=== PATIENT | female | born 1950 | race Caucasian/White ===

== ENCOUNTER → 2017-10-06 | Emergency (ER) | payer BC ==
[~2017-10-06] VITALS: Ht 157.5 cm; Wt 61.2 kg
[~2017-10-06] MED LIST: AMOX500C2 PO; ASPIRIN 325 MG TABLET PO ONE; ASPIRIN 81 MG TAB.CHEW ONE; ASPIRIN 81 MG TAB.CHEW PO ONE; CARVEDILOL 3.125 MG TABLET; PANTOPRAZOLE SOD DR 40 MG TAB
--- NOTE | 2017-10-06 20:43 | NUR ---
PT BROUGHT IN BY [facility] FOR CHEST PAIN OFF AND ON FOR 1 DAY, WORSE 30 MINUTES PRIOR TO ARRIVAL. 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 PT DESCRIBES CHEST PAIN DULL AND PRESSURE NON-RADIATING. DTR AT BEDSIDE SPEAKS JAPANESE. PT STATES SHE DOES NOT SPEAK JAPANESE BUT WAS SPEAKING JAPANESE TO NURSE. EKG REQUESTED TO PT BEDSIDE
[2017-10-06 21:08] LABS: BASOPHILS # (AUTO) 0.1 /CMM (0.0-0.2); BASOPHILS % (AUTO) 0.9 % (0.0-2.0); EOSINOPHILS # (AUTO) 0.1 /CMM (0.0-0.7); EOSINOPHILS % (AUTO) 1.7 % (0.0-6.0); HEMATOCRIT 34 % (33-45); HEMOGLOBIN 11.4 g/dL (11.5-14.8); LYMPHOCYTES # (AUTO) 2.2 /CMM (0.8-4.8); MEAN CORPUSCULAR HEMOGLOBIN 28 PG (26.0-33.0); MEAN CORPUSCULAR HGB CONC 34 g/dl (31.0-36.0); MEAN CORPUSCULAR VOLUME 84 fL (82-100); MONOCYTES # (AUTO) 0.5 /CMM (0.1-1.30); MONOCYTES % (AUTO) 9.3 % (2.0-12.0); NEUTROPHILS # (AUTO) 2.9 /CMM (1.8-8.9); NEUTROPHILS % (AUTO) 51.1 % (43.0-81.0); PLATELET COUNT (AUTO) 250 /CMM (150-450); RDW COEFFICIENT OF VARIATION 13.7 (11.5-15.0); RED BLOOD CELL COUNT(AUTO) 4.05 MIL/uL (4.0-5.2); WHITE BLOOD COUNT (AUTO) 5.8 K/uL (4.3-11.0)
[2017-10-06 21:18] LABS: CALCIUM, SERUM 8.9 mg/dL (8.5-10.1); CARBON DIOXIDE 29 mmol/L (21-32); CHLORIDE 106 mmol/L (98-107); CREATININE 0.6 mg/dL (0.6-1.3); GLUCOSE 109 mg/dL (74-106); POTASSIUM 4.2 mmol/L (3.5-5.1); SODIUM SERUM 140 mmol/L (136-145); UREA NITROGEN, BLOOD 16 mg/dL (7-18)
[2017-10-06 21:26] LABS: TROPONIN I < 0.017 ng/mL (0.00-0.056)
[2017-10-06 22:27] LABS: ALBUMIN 3.2 g/dL (3.4-5.0); BILIRUBIN,TOTAL 0.3 mg/dL (0.2-1.0); TOTAL PROTEIN, SERUM 7.4 g/dL (6.4-8.2)
--- NOTE | 2017-10-06 22:39 | NUR ---
PATIENT ASSIGNED TO TELE 309-2
[2017-10-06 23:01] LABS: INR 1.05 (0.87-1.13); PROTHROMBIN TIME 10.9 SECS (9.5-12.7)
--- NOTE | 2017-10-06 23:27 | NUR ---
PT TO BE TRANSFERRED TO ROOM 309 TELE, US AT BEDSIDE NOW, VSS, PT GIVEN CHEWABLE ASPIRIN AFTER SPEAKING WITH MD. WILL TRANSFER AFTER US. FAMILY AT BEDSIDE
--- NOTE | 2017-10-07 00:09 | NUR ---
IV removed. Catheter intact and site benign. Pressure and 4x4 applied to site. No bleeding noted. Patient does not wish to proceed with medical care recommended by Dr. VITALE. Patient given information related to possible complications, up to and including , which could occur as a result of leaving the hospital at this time. Patient verbalizes understanding of risks involved due to leaving against medical advice. Patient has signed AMA form. Pt ambulatory with a steady gait.
[2017-10-07 00:11] VITALS: BP 138/77
== END | disposition left against medical advice (07) ==
LOC: ER 20:36
DX: R07.89 Other chest pain (principal); R10.13 Epigastric pain; I10 Essential (primary) hypertension
CPT/HCPCS: 36415; 71010; 76705; 80048; 80076; 83690; 84484; 85025; 85730; 87081; 93005; 99285; A4606; Z7610

== ENCOUNTER 2017-10-11 20:08 | Emergency (ER) | payer BC ==
[~2017-10-11] VITALS: Ht 157.5 cm; Wt 71.2 kg
[~2017-10-11 20:08] MED LIST changes: -ASPIRIN 325 MG TABLET PO ONE; -ASPIRIN 81 MG TAB.CHEW ONE; -ASPIRIN 81 MG TAB.CHEW PO ONE
--- NOTE | 2017-10-11 20:20 | NUR ---
PT PRESENTED TO THE ER WITH A C/O LT FLANK PAIN. PT WAS HERE 5 DAYS AGO FOR THE SAME COMPLAINT. PT HAS HX OF KIDNEY STONES. DR. URIARTE WAS AT THE BEDSIDE EVALUATING THE PT. ADEN GRANDE IS AT THE BEDSIDE TRANSLATING FOR MD. PT IS AZERI SPEAKING ONLY.
[2017-10-11] MEDS ORDERED: ONDANSETRON HCL/PF 4 MG/2 ML VIAL ONE (20:29)
[2017-10-11] MEDS ORDERED: HYDROMORPHONE 1 MG/1 ML DISP.SYRIN IV ONE (20:30)
[2017-10-11] MEDS ORDERED: ONDANSETRON HCL/PF 4 MG/2 ML VIAL IVP ONE (20:30)
[2017-10-11] MEDS ORDERED: IV NS 0.9% 500 ML BAG IV ONE (20:30)
[2017-10-11] MEDS ORDERED: HYDROMORPHONE INJ 2 MG/ML DISP.SYRIN ONE (20:30)
[2017-10-11 20:34] LABS: BASOPHILS # (AUTO) 0.2 /CMM (0.0-0.2); EOSINOPHILS # (AUTO) 0.1 /CMM (0.0-0.7); EOSINOPHILS % (AUTO) 0.7 % (0.0-6.0); HEMATOCRIT 39 % (33-45); HEMOGLOBIN 13.1 g/dL (11.5-14.8); LYMPHOCYTES # (AUTO) 2.2 /CMM (0.8-4.8); LYMPHOCYTES % (AUTO) 18.8 % (20.0-44.0); MEAN CORPUSCULAR HEMOGLOBIN 28 PG (26.0-33.0); MEAN CORPUSCULAR HGB CONC 34 g/dl (31.0-36.0); MEAN CORPUSCULAR VOLUME 84 fL (82-100); MONOCYTES # (AUTO) 1.1 /CMM (0.1-1.30); MONOCYTES % (AUTO) 8.9 % (2.0-12.0); NEUTROPHILS # (AUTO) 8.2 /CMM (1.8-8.9); NEUTROPHILS % (AUTO) 69.6 % (43.0-81.0); PLATELET COUNT (AUTO) 336 /CMM (150-450); RDW COEFFICIENT OF VARIATION 13.8 (11.5-15.0); RED BLOOD CELL COUNT(AUTO) 4.65 MIL/uL (4.0-5.2); WHITE BLOOD COUNT (AUTO) 11.9 K/uL (4.3-11.0)
[2017-10-11 20:35] LABS: APPEARANCE,URINE Cloudy (CLEAR); BILIRUBIN,URINE Negative (NEGATIVE); BLOOD, URINE Moderate Ery/uL (NEGATIVE); COLOR,URINE Light yellow (YELLOW); KETONES,URINE Negative (NEGATIVE); LEUKOCYTE ESTERASE ,URINE Moderate (NEGATIVE); NITRITE, URINE Positive (NEGATIVE); PH,URINE 6.5 (5.0-8.0); PROTEIN,URINE >=300 mg/dl (NEGATIVE); UGLUCOSE Negative (NEGATIVE); UROBILINOGEN,URINE 0.2 EU/dL (0.2)
--- NOTE | 2017-10-11 20:35 | NUR ---
PT LEFT FOR CT VIA GURNEY.
[2017-10-11 20:47] LABS: CALCIUM, SERUM 9.3 mg/dL (8.5-10.1); CREATININE 0.7 mg/dL (0.6-1.3); POTASSIUM 3.1 mmol/L (3.5-5.1)
--- NOTE | 2017-10-11 20:48 | NUR ---
PT RETURNED FROM CT.
[2017-10-11 20:51] LABS: BACTERIA,URINE Moderate /HPF (None Seen); SQUAMOUS EPITHELIAL CELL,UR Few /HPF (None Seen); WBC,URINE 21-50 /HPF (0-3)
[2017-10-11] MEDS ORDERED: POTASSIUM CHLORIDE 20 MEQ TAB.PRT.SR PO ONE ×2 (21:30→21:35)
[2017-10-11] MEDS ORDERED: CEFTRIAXONE 1GM BAG (ER ONLY) 1 GM/50 ML PIGGYBACK IV ONE (21:30)
[2017-10-11] MEDS ORDERED: CEFTRIAXONE 1 G VIAL ONE (21:34)
--- NOTE | 2017-10-11 22:35 | NUR ---
DR. RAI IS AT THE BEDSIDE WITH ADEN GRANDE ([employer]PER[employer]) SPEAKING TO THE PT AND HER SON RE: POC. PT TO BE TRANSFERRED FOR HIGHER LEVEL OF CARE. (UROLOGY)
--- NOTE | 2017-10-11 23:25 | NUR ---
PT APPEARS TO BE RESTING COMFORTABLY WITH NO S/S OF PAIN OR DISTRESS.
--- NOTE | 2017-10-11 23:52 | NUR ---
[facility] preferred [phone], busy signal.
--- NOTE | 2017-10-12 00:11 | NUR ---
called [facility] [employer] [employer] preferred [phone], no answer, line busy.
--- NOTE | 2017-10-12 00:24 | NUR ---
Several calls to [facility] preferred [phone], got busy signal several times. Will try again.
--- NOTE | 2017-10-12 00:32 | NUR ---
Per [place] w/ [facility] preferred [phone], states need to s/w Manny, placed on hold for more than 5 mins. Will c/b.
--- NOTE | 2017-10-12 00:49 | NUR ---
Per [facility] w/ [facility] preferred [phone], states need to s/w Manny, again placed on hold for more than 5 mins. Unable to get hold of sales representative [employer] w/ [facility] preferred.
--- NOTE | 2017-10-12 00:59 | NUR ---
still on hold w/ [facility] preferred [phone], states need to s/w Manny, placed on hold for more than 5 mins.
--- NOTE | 2017-10-12 01:09 | NUR ---
Per [facility]/ [facility] preferred [phone], s/Jhonatan, will contact her MD for MD to MD call.
--- NOTE | 2017-10-12 01:30 | NUR ---
PT APPEARS TO BE SLEEPING SOUNDLY WITH NO S/S OF PAIN OR DISTRESS
--- NOTE | 2017-10-12 01:43 | NUR ---
No c/b from [facility]/ [facility] preferred [phone], accepting MD Dr. Loja on phone w/ Dr. Sawyer. Faxed facesheet to ATT: [facility] Admitting [phone]. Addendum: 10/12/17 at 0208 by [email or web address] auth# [id number].
--- NOTE | 2017-10-12 02:21 | NUR ---
S/W Tabitha, at Admitting [phone] advised fax facesheet received, advised awaiting c/b from [facility]/ auth#.
--- NOTE | 2017-10-12 02:27 | NUR ---
PT APPEARS TO BE SLEEPING SOUNDLY WITH A STEADY GAIT.
--- NOTE | 2017-10-12 02:38 | NUR ---
S/W Tabitha@ Admitting [phone], auth received, awaiting bed and will c/b w/ bed info.
[2017-10-12 03:00] VITALS: BP 114/72
--- NOTE | 2017-10-12 03:15 | NUR ---
PT AMBULATED TO THE BATHROOM WITH A STEADY GAIT.
--- NOTE | 2017-10-12 03:22 | NUR ---
S/W Tabitha at [facility] [employer] [facility] Admitting advised no bed info at this time, will c/b when bed info available.
--- NOTE | 2017-10-12 03:33 | NUR ---
PT AMBULATED BACK TO BED #4 WITH A STEADY GAIT.
--- NOTE | 2017-10-12 03:57 | NUR ---
INCOMING CALL FR [facility] AT ADMITTING, ACCEPTING MD DR. MELENDEZ, CALL [phone] TELE RM [phone] FOR REPORT.
--- NOTE | 2017-10-12 04:02 | NUR ---
[facility] for ALS transfer to , Ambulance auth# [id number], ETA 90mins at 0530. trip# [phone].
--- NOTE | 2017-10-12 04:05 | NUR ---
REPORT GIVEN TO ANICETO GILBERT @ [facility].
--- NOTE | 2017-10-12 04:08 | NUR ---
INCOMING CALL [facility] CHANGE ETA 0500.
--- NOTE | 2017-10-12 04:47 | NUR ---
[facility] ARRIVED AND REPORT GIVEN TO EMT. PT AMBULATED TO THE BATHROOM WITH A STEADY GAIT.
== END 2017-10-12 04:39 ==
LOC: ER 20:09
DX: R10.9 Unspecified abdominal pain (principal); I10 Essential (primary) hypertension; Z87.442 Personal history of urinary calculi
CPT/HCPCS: 36415; 74176; 80048; 81001; 85025; 87077; 87086; 87186; 96365; 96375; 99285; A4606; J0696 ×2; J1170; J2405; J7040; Z7610; 81000-TC